=== PATIENT | female | born 1975 | race Caucasian/White ===

== ENCOUNTER 2018-12-28 21:44 | Emergency (ER) | payer MEDICAID ==
[2018-12-28 23:01] LABS: URINE PH (Dip) POC 5.5 (5.0-8.5)
[2018-12-28 23:01] LABS: URINE BLOOD (Dip) POC 2+ (NEGATIVE); URINE GLUCOSE (Dip) POC Negative (NEGATIVE); URINE KETONES (Dip) POC Negative (NEGATIVE); URINE LEUKOCYTE EST (Dip) POC Negative (NEGATIVE); URINE NITRITE (Dip) POC Negative (NEGATIVE); URINE TOTAL PROTEIN POC Negative (NEGATIVE)
[2018-12-28] MEDS ORDERED: KETOROLAC 60 MG INJ IM (23:49)
[2018-12-29] MEDS: KETOROLAC 30 MG INJ IV (00:35)
== END 2018-12-29 01:35 | disposition home or self-care (01) ==
LOC: E/R 12-29 01:35
DX: M54.5 Low back pain (principal); R31.9 Hematuria, unspecified; Z87.891 Personal history of nicotine dependence
CPT/HCPCS: 81003; 81025; 96374; 99284-25